=== PATIENT | female | born 1965 | race Caucasian/White ===

== ENCOUNTER → 2021-02-13 | Outpatient (CLI) | payer OTHER ==
[~2021-02-13] MED LIST: AUGMENTIN 875-1 EACH PO; CLARITIN10 MG PO; EFFEXOR XR37.5 MG PO; FLAGYL 250 MG250 MG PO; GLUCOPHAGE500 MG PO; LEVOFLOXACIN500 MG PO; MEGA BIOTIN10000 MCG PO; NORCO 5-325 TA1 EACH PO; PRINIVIL10 MG PO; SYNTHROID25 MCG PO
== END ==
LOC: KOH-I 12:35
DX: R05 Cough (principal)
CPT/HCPCS: 71046

== ENCOUNTER 2021-03-29 02:43 | Emergency (ER) | payer SELFPAY ==
[2021-03-29 04:18] LABS: HEMOGLOBIN 14.9 gm/dl (12.3-15.3); RED BLOOD COUNT 5.13 M/UL (4.00-5.10); WHITE BLOOD COUNT 12.9 K/UL (4.5-11.0)
[2021-03-29] MEDS ORDERED: AUGMENTIN 875-1 EACH PO (05:24)
== END 2021-03-29 05:37 | disposition home or self-care (01) ==
LOC: ER1 02:43
PROVIDERS: Emergency Medicine
DX: K57.32 Diverticulitis of large intestine without perforation or abscess without bleeding (principal)
CPT/HCPCS: 80053; 81001; 83605; 83690; 85025; 99284; Q9967